=== PATIENT | female | born 1985 | race Caucasian/White ===

== ENCOUNTER 2024-03-21 13:52 | Emergency (ER) | payer OTHER ==
[2024-03-21 14:36] LABS: VENOUS BASE EXCESS -2.6 mmol/L (-2-2); VENOUS O2 SATURATION 83.2 % (70-80); VENOUS PCO2 52.4 mmHg (38-52); VENOUS PH 7.286 (7.310-7.410)
[2024-03-21 14:38] LABS: HEMATOCRIT 36.9 % (32.4-45.2); MCH 28.4 pg (25.7-33.7); MCHC 32.5 g/dl (32.0-36.0); MEAN CELL VOLUME 87.4 fl (80-96); MEAN PLT VOLUME 7.5 fl (7.5-11.1); PLATELET COUNT 273 10^3/uL (134-434); RBC 4.22 M/mm3 (3.60-5.2); WHITE BLOOD COUNT 13.5 K/mm3 (4.0-10.0)
[2024-03-21 14:53] LABS: CHLORIDE 107 mmol/L (98-107); SODIUM 136 mmol/L (136-145)
[2024-03-21 14:56] LABS: CALCIUM 8.8 mg/dL (8.5-10.1)
[2024-03-21 14:57] LABS: ALBUMIN 3.8 g/dl (3.4-5.0); ANION GAP 7 mmol/L (4-13); BLOOD UREA NITROGEN 15.2 mg/dL (7-18); CO2 22 mmol/L (21-32); GLUCOSE,RANDOM 114 mg/dL (74-106)
[2024-03-21 15:00] LABS: CREATININE 0.8 mg/dL (0.55-1.3); SGOT/AST 20 U/L (15-37); SGPT/ALT 34 U/L (13-61)
[2024-03-21 15:02] LABS: ALK PHOS 120 U/L (45-117); BILIRUBIN,TOTAL 0.4 mg/dL (0.2-1); TOT PROT 7.2 g/dl (6.4-8.2)
[2024-03-21 15:04] LABS: PH,URINE 5.5 (5.0-8.0); URINE APPEARANCE CLEAR; URINE BILIRUBIN NEGATIVE (NEGATIVE); URINE COLOR YELLOW; URINE GLUCOSE (UA) NEGATIVE (NEGATIVE); URINE KETONE TRACE (NEGATIVE); URINE LEUK ESTERASE NEGATIVE (NEGATIVE); URINE NITRITE NEGATIVE (NEGATIVE); URINE PROTEIN TRACE (NEGATIVE); URINE UROBILINOGEN 0.2 mg/dL (0.2-1.0)
[2024-03-21 15:09] VITALS: BMI 23.5
[2024-03-21 15:12] LABS: URINE AMPHETAMINES NEGATIVE (NEGATIVE); URINE BARBITURATES NEGATIVE (NEGATIVE)
[2024-03-21 15:13] LABS: COCAINE, UR NEGATIVE (NEGATIVE); METHADONE, UR NEGATIVE (NEGATIVE); PHENCYCLIDINE,URINE NEGATIVE (NEGATIVE)
[2024-03-21 15:15] LABS: OPIATES, URI NEGATIVE (NEGATIVE); URINE BENZODIAZEPINES POSITIVE (NEGATIVE)
[2024-03-21 15:16] LABS: INR 1.03 (0.83-1.09); PROTHROMBIN TIME (PATIENT) 11.6 SEC (9.7-13.0)
[2024-03-21] MEDS: LORazepam 2 MG/ML SDV VIAL IVPUSH ONE ×3 (15:37)
[2024-03-21 15:48] LABS: ANISOCYTOSIS 0; HELMET CELLS 0; HOWELL-JOLLY BODIES 0; MACROCYTOSIS 0; OVALOCYTE 0; ROULEAU 0; SICKELED CELLS 0; TARGET CELLS 0; TEAR DROP CELLS 0; TOXIC GRANULATION 0
[2024-03-21] MEDS: levETIRAcetam 500 MG/5 ML INJECTION VIAL IVPB ONE (16:37)
[2024-03-21 16:55] VITALS: TEMP 98.3
[2024-03-21 20:53] VITALS: BP 105/69; PULSE 86; RESP 17
== END 2024-03-21 20:10 | disposition short-term general hospital (02) ==
LOC: JER 13:52
PROC: 3E033GC Introduction of Other Therapeutic Substance into Peripheral Vein, Percutaneous Approach (ICD-10-PCS; principal; 2024-03-21)
PROC: 3E033GC Introduction of Other Therapeutic Substance into Peripheral Vein, Percutaneous Approach (ICD-10-PCS; 2024-03-21)
PROC: 3E033GC Introduction of Other Therapeutic Substance into Peripheral Vein, Percutaneous Approach (ICD-10-PCS; 2024-03-21)
PROC: 3E033GC Introduction of Other Therapeutic Substance into Peripheral Vein, Percutaneous Approach (ICD-10-PCS; 2024-03-21)
DX: G40.901 Epilepsy, unspecified, not intractable, with status epilepticus (principal); Z20.822 Contact with and (suspected) exposure to COVID-19
CPT/HCPCS: 0241U-QW; 36415; 70450-TC; 71045-TC-FY; 80053; 80156; 80201; 80307; 81003; 82803; 83605; 84484; 84703; 85025; 85610; 85730; 86850; 86900; 86901; 87040; 87086; 93005; 93010; 99291

== ENCOUNTER 2024-05-21 17:08 | Observation (INO) | payer OTHER ==
[2024-05-21] MEDS ORDERED: MIDAZOLAM HCL 5 MG/1 ML Single Dose Vial ONE (17:18)
[2024-05-21] MEDS: MIDAZOLAM HCL 5 MG/1 ML Single Dose Vial IVPUSH ONE (17:48)
[2024-05-21] MEDS: SODIUM CHLORIDE 0.9% 500 ML INFUS.BAG IV ONE (17:53)
[2024-05-21 17:55] LABS: ABSOLUTE IMMATURE GRANULOCYTES 0.02 x10^3/uL (0.0-0.031); BASOPHILS # 0.02 x10^3/uL (0.01-0.08); EOSINOPHIL % 0.9 % (0.7-5.8); EOSINOPHILS # 0.05 x10^3/uL (0.04-0.36); HEMATOCRIT 35.6 % (34.1-44.9); HEMOGLOBIN 11.1 g/dL (11.2-15.7); MCHC 31.2 g/dl (32.2-35.5); MEAN CELL VOLUME 90.4 fl (79.4-94.8); MEAN PLT VOLUME 9.3 fl (9.4-12.3); MONOCYTE # 0.44 x10^3/uL (0.24-0.86); MONOCYTE % 8.3 % (4.7-12.5); PLATELET COUNT # 188 x10^3/uL (182-369); RDW 13.4 % (12.1-16.8)
[2024-05-21] MEDS ORDERED: carBAMazepine 200 MG TABLET ONE ×2 (18:03→22:40)
[2024-05-21] MEDS: carBAMazepine 200 MG TABLET PO SCH (18:09)
[2024-05-21 18:30] LABS: POTASSIUM 4.1 mmol/L (3.5-5.1)
[2024-05-21 18:32] LABS: CALCIUM 8.9 mg/dL (8.5-10.1)
[2024-05-21 18:33] LABS: ALBUMIN 3.4 g/dl (3.4-5.0)
[2024-05-21 18:34] LABS: BLOOD UREA NITROGEN 19.4 mg/dL (7-18)
[2024-05-21 18:35] LABS: INR 0.96 (0.83-1.09); PROTHROMBIN TIME (PATIENT) 10.6 SEC (9.7-13.0)
[2024-05-21 18:36] LABS: CREATININE 0.7 mg/dL (0.55-1.3)
[2024-05-21 18:37] LABS: ACTIVATED PTT 24.7 SECONDS (25.2-36.5); TOT PROT 6.8 g/dl (6.4-8.2)
[2024-05-21 18:39] LABS: BILIRUBIN,TOTAL 0.2 mg/dL (0.2-1)
[2024-05-21] MEDS: LACTATED RINGERS SOLUTION 1000 ML INFUS.BAG IV ONE (18:58)
[2024-05-21] MEDS: SODIUM CHLORIDE 1,000 ML IV SCH (19:00)
[2024-05-21] MEDS ORDERED: CEFTRIAXONE 1 G/50 ML PREMIX 50 ML IVPB ONE (19:02)
[2024-05-21] MEDS ORDERED: AZITHROMYCIN IVPB 500 MG/250 ML BAG IVPB ONE (19:02)
[2024-05-21 20:34] LABS: PH,URINE 6.5 (5.0-8.0); URINE APPEARANCE CLEAR; URINE BILIRUBIN NEGATIVE (NEGATIVE); URINE COLOR YELLOW; URINE GLUCOSE (UA) NEGATIVE (NEGATIVE); URINE KETONE NEGATIVE (NEGATIVE); URINE LEUK ESTERASE NEGATIVE (NEGATIVE); URINE NITRITE NEGATIVE (NEGATIVE); URINE PROTEIN TRACE (NEGATIVE); URINE UROBILINOGEN 0.2 mg/dL (0.2-1.0)
[2024-05-21] MEDS: ONDANSETRON 4 MG/2 ML VIAL IVPUSH ONE (20:58)
[2024-05-21] MEDS: AZITHROMYCIN IVPB 500 MG in DEXTROSE 5%-WATER - 250 ML IVPB ONE (20:59)
[2024-05-21] MEDS ORDERED: ONDANSETRON 4 MG/2 ML VIAL ONE (21:03)
[2024-05-21] MEDS ORDERED: carBAMazepine XR 200 MG TAB.ER.12H PO SCH (22:00)
[2024-05-21] MEDS: CARBAMAZEPINE PO SCH (22:38)
[2024-05-21] MEDS: carBAMazepine XR 200 MG TAB.ER.12H PO ONE (22:38)
[2024-05-22] VITALS: BMI 32.1
[2024-05-22] MEDS: ACETAMINOPHEN 1000 MG/100 ML BAG IVPB ONE (01:43)
[2024-05-22 06:46] VITALS: RESP 16
[2024-05-22 08:54] LABS: ABSOLUTE IMMATURE GRANULOCYTES 0.02 x10^3/uL (0.0-0.031); BASOPHILS # 0.02 x10^3/uL (0.01-0.08); EOSINOPHIL % 0.5 % (0.7-5.8); EOSINOPHILS # 0.03 x10^3/uL (0.04-0.36); HEMATOCRIT 31.9 % (34.1-44.9); HEMOGLOBIN 10.2 g/dL (11.2-15.7); MEAN CELL VOLUME 89.4 fl (79.4-94.8); MEAN PLT VOLUME 9.2 fl (9.4-12.3); MONOCYTE # 0.46 x10^3/uL (0.24-0.86); MONOCYTE % 7.1 % (4.7-12.5); PLATELET COUNT # 141 x10^3/uL (182-369); RDW 13.6 % (12.1-16.8)
[2024-05-22 09:23] LABS: POTASSIUM 3.9 mmol/L (3.5-5.1)
[2024-05-22 09:30] LABS: ALBUMIN 3.1 g/dl (3.4-5.0); CALCIUM 7.9 mg/dL (8.5-10.1)
[2024-05-22 09:31] LABS: MAGNESIUM 2.1 mg/dL (1.8-2.4)
[2024-05-22 09:33] LABS: CREATININE 0.6 mg/dL (0.55-1.3); PHOSPHOROUS 4.1 mg/dL (2.5-4.9)
[2024-05-22 09:34] LABS: BILIRUBIN,TOTAL 0.2 mg/dL (0.2-1); TOT PROT 6.1 g/dl (6.4-8.2)
[2024-05-22] MEDS: ENOXAPARIN NA (PORCINE) 40 MG/0.4 ML DISP.SYRIN SQ SCH (09:48)
[2024-05-22] MEDS ORDERED: VALPROATE SODIUM 500 MG/5 ML VIAL IVPB ONE ×2 (09:54)
[2024-05-22] MEDS ORDERED: FLUoxetine HCL 20 MG CAPSULE PO SCH (10:00)
[2024-05-22] MEDS ORDERED: ARIPiprazole 10 MG TABLET PO SCH (10:00)
[2024-05-22] MEDS: VALPROATE SODIUM INJECTION 1,000 MG in SODIUM CHLORIDE 100 ML IVPB ONE (11:51)
[2024-05-22 15:13] VITALS: BP 115/59; PULSE 76; TEMP 98.2
== END 2024-05-22 16:05 | disposition home or self-care (01) ==
LOC: JER 17:08 → JERBED 18:50 → J7W 23:49
PROVIDERS: ADMIT Hospitalist
PROC: 3E03329 Introduction of Other Anti-infective into Peripheral Vein, Percutaneous Approach (ICD-10-PCS; principal; 2024-05-21)
PROC: 3E033NZ Introduction of Analgesics, Hypnotics, Sedatives into Peripheral Vein, Percutaneous Approach (ICD-10-PCS; 2024-05-21)
PROC: 3E033GC Introduction of Other Therapeutic Substance into Peripheral Vein, Percutaneous Approach (ICD-10-PCS; 2024-05-21)
PROC: 3E0337Z Introduction of Electrolytic and Water Balance Substance into Peripheral Vein, Percutaneous Approach (ICD-10-PCS; 2024-05-21)
DX: G40.909 Epilepsy, unspecified, not intractable, without status epilepticus (principal); G80.9 Cerebral palsy, unspecified; F50.20 Bulimia nervosa, unspecified; D64.9 Anemia, unspecified; E78.5 Hyperlipidemia, unspecified
CPT/HCPCS: 0241U-QW; 36415; 71045-TC-FY; 80053; 80061; 81003; 82550; 82728; 82962; 83036; 83540; 83550; 83735; 84100; 84443; 84484; 85025; 85610; 85730; 86850; 86900; 86901; 87086; 93005; 93010; 96361; 96365; 96367; 96374; 96375; 99285-25; G0378; J0131